=== PATIENT | male | born 1955 | race Caucasian/White ===

== ENCOUNTER 2020-02-26 13:14 | Emergency (ER) | payer OTHER ==
[~2020-02-26] VITALS: Ht 167.6 cm; Wt 85.3 kg
[2020-02-26 13:35] VITALS: BP 121/80
--- NOTE | 2020-02-26 14:05 | NUR ---
C/O NECK PRESSURE PAIN X YESTERDAY &LEFT ARM NUMBNESS X 1 MONTH AGO. DENIES PAIN OR NUMBNESS AT THIS TIME. MED HX: TRIPLE BYPASS SURGERY 3 YEARS AGO, PRE DM, HTN, HLD
--- NOTE | 2020-02-26 14:36 | NUR ---
AUSTIN QUINN EVALUATING PT AT BEDSIDE
[2020-02-26 16:22] VITALS: BP 121/80
--- NOTE | 2020-02-26 16:22 | NUR ---
Patient discharged with v/s stable. Written and verbal after care instructions given and explained. Patient verbalized understanding. Ambulatory with steady gait. All questions addressed prior to discharge. Advised to follow up with PMD.
== END 2020-02-26 16:22 | disposition home or self-care (01) ==
LOC: MED 13:14
DX: M50.123 Cervical disc disorder at C6-C7 level with radiculopathy (principal); I10 Essential (primary) hypertension; I51.89 Other ill-defined heart diseases; Z95.1 Presence of aortocoronary bypass graft
CPT/HCPCS: 72040; 82948; 99284